=== PATIENT | female | born 1965 | race Caucasian/White ===

== ENCOUNTER 2016-11-29 11:20 | Outpatient (CLI) | payer OTHER ==
--- NOTE | 2016-11-29 19:40 | RAD ---
ABDOMEN: Date: 11-29-16 FINDINGS: Supine and erect films show no free air beneath the diaphragm. The gas pattern is completely normal with no sign of obstruction. Attention is drawn to the left upper quadrant. On two of the views t here is a very faint density that is mostly obscured by fecal material in the splenic flexure of the colon, but this could be the ingested foreign body. It is rather small and not extremely metallic. Otherwise, the remainder of the exam was unremarkable. A faint calcification or two in the pelvis on the left is most likely a developing phlebolith. The bony structures showed no acute change. IMPRESSION: Probable tiny foreign body in the left upper quadrant obscured by the fecal material of the splenic flexure of the colon. POS: HOME
== END 2016-11-29 11:21 | disposition home or self-care (01) ==
LOC: BURRAD 11:20
PROVIDERS: ATTEND Physician Assistant
DX: T65.91XA Toxic effect of unspecified substance, accidental (unintentional), initial encounter (principal)
CPT/HCPCS: 74020

== ENCOUNTER 2016-12-01 12:13 | Outpatient (CLI) | payer OTHER ==
--- NOTE | 2016-12-01 16:37 | RAD ---
ABDOMEN: Date: 12-01-16 Supine and erect films show no free air beneath the diaphragm. The abdominal gas pattern is normal with no distended loops to suggest obstruction. Regarding the density seen in the left upper quadrant on the prior abdominal film, I see a similar f inding again in exactly the same place. On today's view it more looks like an unusual costicartilag e calcification then a true foreign object. I see nothing elsewhere that resembles a foreign body. There is certainly no evidence that any foreign body is causing any bowel issues. At most, one ricky ht say the amount of fecal material present is a bit more than usual. Otherwise, there were no find ings of concern. The lung bases are clear. IMPRESSION: 1. No adverse change since the prior film. The left upper quadrant density more resembles unusual costicartilage calcification than a foreign body. There is certainly no strongly metallic foreign b teofilo present in this patient in the visible areas. 2. At most, mild constipation. POS: HOME
== END 2016-12-01 12:14 | disposition home or self-care (01) ==
LOC: BURRAD 12:13
PROVIDERS: ATTEND Physician Assistant
DX: T65.91XA Toxic effect of unspecified substance, accidental (unintentional), initial encounter (principal); K59.00 Constipation, unspecified
CPT/HCPCS: 74020

== ENCOUNTER 2016-12-06 08:30 | Outpatient (CLI) | payer OTHER ==
--- NOTE | 2016-12-06 15:55 | RAD ---
LUMBAR SPINE THREE VIEWS: Date: 12-06-16 FINDINGS: No fracture, dislocation, or acute bony change was seen. The disc spaces are normal in height. The re are no significant arthritic changes. Some dense calcification is seen at the bifurcation of the aorta and proximal iliac arteries. The SI joints appear normal. IMPRESSION: No significant bony findings. POS: [facility]
== END 2016-12-06 08:31 | disposition home or self-care (01) ==
LOC: BURRAD 08:30
PROVIDERS: ATTEND Family Medicine
DX: M54.5 Low back pain (principal)
CPT/HCPCS: 72100

== ENCOUNTER 2017-03-19 06:22 | Outpatient (CLI) | payer OTHER ==
[2017-03-19 07:38] LABS: #Basophils 0.1 thou/uL (0.0-0.2); #Eosinphils 0.2 thou/uL (0.0-0.7); #Lymphocytes 2.7 thou/uL (1.20-3.40); #Monocytes 0.5 thou/uL (0.11-0.59); #Neutrophils 3.2 thou/uL (1.40-6.50); %Basophils 1.6 % (0.0-1.0); %Eosinophils 3.4 % (0.0-10.0); %Lymphocytes 40.4 % (21.0-51.0); %Monocytes 6.9 % (0.0-10.0); %Neutrophils 47.7 % (42.0-75.0); Hemoglobin 14.7 g/dL (12.0-16.0); Mean Corpuscular Hemoglobin 31.2 pg (27.0-31.0); Mean Corpuscular Volume 94.7 fl (81.0-99.0); Mean Platelet Volume 7.1 fL (7.4-10.4); Platelet Count 242 thou/uL (130-400); RBC Distribution Width 12.6 % (11.5-14.5); White Blood Cell (WBC) Count 6.7 thou/uL (4.8-10.8)
[2017-03-19 08:08] LABS: Free T4 (Free Thyroxine) 1.11 ng/dL (0.70-1.48); Thyroid Stimulating Hormone 2.4167 uIU/mL (0.35-4.94)
== END 2017-03-19 06:23 | disposition home or self-care (01) ==
LOC: BURLAB 06:22
PROVIDERS: ATTEND Family Medicine
DX: Z13.6 Encounter for screening for cardiovascular disorders (principal); R53.83 Other fatigue; Z90.89 Acquired absence of other organs; Z79.899 Other long term (current) drug therapy
CPT/HCPCS: 36415; 80061; 82607; 84439; 84443; 85025

== ENCOUNTER 2017-04-12 07:59 | Outpatient (CLI) | payer OTHER ==
--- NOTE | 2017-04-13 07:44 | CT ---
CT ABDOMEN AND PELVIS WITH CONTRAST 04/12/2017 HISTORY: A spiral CT of the abdomen and pelvis was done for evaluation of generalized abdominal pain in this patient with elevated pancreatic enzymes. TECHNIQUE: Axial slices were acquired after giving oral and IV contrast. Coronal reconstructions were then don e. FINDINGS: ABDOMEN: The lung bases are clear. The liver may be slightly generous in size but, otherwise, appe ars normal. The spleen is normal in size. Regarding the pancreas, it is normal in appearance. I s ee no peripancreatic stranding, to allow the diagnosis of pancreatitis at this time. There is no di lation of the pancreatic duct. No pancreatic masses are seen. The gallbladder contains no observab le stones, and there is no evidence of dilation of the common bile duct. The kidneys and adrenal gl ands appear normal. The bowel is unremarkable, showing no sign of obstruction or inflammatory change. The appendix appe ars normal. No free air or free fluid is seen. PELVIS: CT of the pelvis shows no pelvic masses, fluid collections, or inflammatory changes. No pa rticular adenopathy is seen. There is a concentric bulge of the L4-L5 disk. IMPRESSION: 1. No CT findings of pancreatitis or other causes to explain generalized pain at this time. 2. Borderline hepatic size. POS: HOME
== END 2017-04-12 08:00 | disposition home or self-care (01) ==
LOC: BURCT 07:59
PROVIDERS: ATTEND Family Medicine
DX: R10.84 Generalized abdominal pain (principal); R74.8 Abnormal levels of other serum enzymes
CPT/HCPCS: 74177

== ENCOUNTER 2019-07-29 23:50 | Emergency (ER) | payer OTHER ==
[2019-07-30] MEDS ORDERED: Morphine 2 MG/ML SYRINGE ONE (00:07)
[2019-07-30] MEDS ORDERED: Promethazine 25 MG TAB ONE (00:07)
== END 2019-07-30 00:10 | disposition home or self-care (01) ==
LOC: BURERS 23:50
DX: K04.7 Periapical abscess without sinus (principal); F17.210 Nicotine dependence, cigarettes, uncomplicated; Z79.899 Other long term (current) drug therapy
CPT/HCPCS: 96372; 99282; J2270; Q0169

== ENCOUNTER 2020-08-11 10:06 | Emergency (ER) | payer OTHER ==
[2020-08-11] MEDS ORDERED: Diazepam 5 MG TAB ONE (10:16)
[2020-08-11] MEDS ORDERED: Ketorolac Tromethamine 60 MG/2 ML VIAL ONE (10:17)
[2020-08-11] MEDS ORDERED: Acetaminophen/Codeine 30-300mg Tablet ONE (10:37)
== END 2020-08-11 10:40 | disposition home or self-care (01) ==
LOC: BURERS 10:06
DX: M62.830 Muscle spasm of back (principal); F17.210 Nicotine dependence, cigarettes, uncomplicated
CPT/HCPCS: 96372; 99283; J1885

== ENCOUNTER 2020-08-16 11:03 | Emergency (ER) | payer OTHER ==
[2020-08-16] MEDS ORDERED: predniSONE 20 MG TAB ONE (11:24)
== END 2020-08-16 11:27 | disposition home or self-care (01) ==
LOC: BURERS 11:03
DX: M54.16 Radiculopathy, lumbar region (principal); F17.210 Nicotine dependence, cigarettes, uncomplicated
CPT/HCPCS: 99283; J7512

== ENCOUNTER 2021-03-06 11:14 | Emergency (ER) | payer OTHER ==
[2021-03-06 16:59] LABS: HIV (1/2) Antibody/Antigen Non-Reactive (NonReactive); HIV 1/2 INDEX 0.16 S/CO (<1.00); Hep C IgG Ab Non-Reactive (NonReactive); Hep C Index 0.07 S/CO (0-0.79)
[2021-03-06 17:02] LABS: HBSAB Concentration 756.58 mIU/mL; Hep B Surf AB Reactive (NonReactive)
[2021-03-07] MEDS ORDERED: cefTRIAXone\\ROCEPHIN 1 GM VIAL ONE (18:27)
[2021-03-07] MEDS ORDERED: Magnesium Citrate 300 ML BOT ONE (18:27)
[2021-03-07] MEDS ORDERED: Ketorolac Tromethamine 30 MG/ML VIAL ONE (18:27)
[2021-03-07] MEDS ORDERED: Lidocaine 1% PF 5 ML VIAL ONE (18:27)
[2021-03-07] MEDS ORDERED: Lidocaine 2% PF 5 ML VIAL ONE (18:28)
== END 2021-03-06 11:48 | disposition home or self-care (01) ==
LOC: BURERS 11:14
DX: Z77.21 Contact with and (suspected) exposure to potentially hazardous body fluids (principal); F17.210 Nicotine dependence, cigarettes, uncomplicated
CPT/HCPCS: 86706; 86803; 87389; 99283

== ENCOUNTER 2021-12-22 12:37 | Emergency (ER) | payer BC, OTHER ==
[2021-12-22] MEDS ORDERED: Aspirin Chewable 81 MG TAB ONE (12:52)
[2021-12-22 13:00] LABS: #Basophils 0.1 thou/uL (0.0-0.2); #Eosinphils 0.2 thou/uL (0.0-0.7); #Lymphocytes 2.9 thou/uL (1.20-3.40); #Monocytes 0.5 thou/uL (0.11-0.59); #Neutrophils 3.6 thou/uL (1.40-6.50); %Basophils 1.4 % (0.0-1.0); %Eosinophils 2.6 % (0.0-10.0); %Lymphocytes 40.3 % (21.0-51.0); %Monocytes 7.1 % (0.0-10.0); %Neutrophils 48.7 % (42.0-75.0); Hemoglobin 13.3 g/dL (12.0-16.0); Mean Corpuscular HGB CONC 33.5 g/dL (32.0-36.0); Mean Corpuscular Hemoglobin 31.1 pg (27.0-31.0); Mean Platelet Volume 6.7 fL (7.4-10.4); Platelet Count 268 thou/uL (130-400); RBC Distribution Width 12.5 % (11.5-14.5); Red Blood Cell (RBC) Count 4.27 mill/uL (4.20-5.40); White Blood Cell (WBC) Count 7.3 thou/uL (4.8-10.8)
[2021-12-22] MEDS ORDERED: Nitroglycerin 0.4 MG TAB 1 EACH ONE ×2 (13:02→15:10)
[2021-12-22 13:12] LABS: ALT (SGPT) 18 U/L (8-55); AST (SGOT) 21 U/L (5-34); Albumin 4.2 g/dL (3.5-5.0); Alkaline Phosphatase 68 U/L (40-110); Anion Gap 14 mmol/L (10-20); BUN (Urea Nitrogen) 13 mg/dL (9.8-20.1); Bilirubin, Total 0.5 mg/dL (0.2-1.2); Calc. Creatinine Clearance 0 mL/min (70-130); Calcium 9.2 mg/dL (7.8-10.44); Carbon Dioxide 26 mmol/L (22-29); Chloride 103 mmol/L (98-107); Globulin 2.9 g/dL (2.4-3.5); Glucose 118 mg/dL (70-105); Potassium 3.9 mmol/L (3.5-5.1); Protein, Total 7.1 g/dL (6.0-8.3); Sodium 139 mmol/L (136-145)
== END 2021-12-22 16:48 | disposition home or self-care (01) ==
LOC: BURERS 12:37
DX: R07.89 Other chest pain (principal); F17.210 Nicotine dependence, cigarettes, uncomplicated
CPT/HCPCS: 71046; 80053; 83880; 84484; 85025; 93005; 94760

== ENCOUNTER 2023-05-11 08:00 | Outpatient (CLI) | payer BC ==
[2023-05-11] MEDS ORDERED: Iopamidol 370 76% 100 ML VIAL ONE (14:10)
== END 2023-05-11 08:01 | disposition home or self-care (01) ==
LOC: BURCT 08:00
PROVIDERS: ATTEND Family Medicine
DX: R07.81 Pleurodynia (principal); S22.43XD Multiple fractures of ribs, bilateral, subsequent encounter for fracture with routine healing; J43.9 Emphysema, unspecified; R91.8 Other nonspecific abnormal finding of lung field
CPT/HCPCS: 71260; Q9967

== ENCOUNTER 2023-05-25 10:42 | Outpatient (CLI) | payer BC ==
[~2023-05-25 10:42] MED LIST: Iopamidol 370 76% 100 ML VIAL ONE
== END 2023-05-25 10:43 | disposition home or self-care (01) ==
LOC: BURCT 10:42
PROVIDERS: ATTEND Family Medicine
DX: J18.1 Lobar pneumonia, unspecified organism (principal)
CPT/HCPCS: 71260; Q9967